=== PATIENT | male | born 1975 | race African-American/Black ===

== ENCOUNTER 2019-05-30 13:03 | Inpatient (IN) | payer SELFPAY ==
[~2019-05-30] VITALS: Ht 182.9 cm; Wt 106.6 kg
[2019-05-30] MEDS ORDERED: MAGNESIUM/ALUMINUM HYDROXIDE/SIMETHICONE 30ML UDC PO ONE (14:15)
[2019-05-30] MEDS ORDERED: ASPIRIN 81MG TABLET PO ONE (14:15)
[2019-05-30] MEDS ORDERED: VISCOUS LIDOCAINE 2% 15 ML UDC PO ONE (14:15)
[2019-05-30 14:31] LABS: BASOPHILS % 0.8 % (0.0-2.0); EOSINOPHILS % 3.7 % (0.0-5.0); HEMATOCRIT. 42.9 % (42.0-52.0); HEMOGLOBIN. 14.7 g/dL (14.0-18.0); LYMPHOCYTES % 34.9 % (20.0-50.0); MEAN CORPUSCULAR HEMOGLOBIN 30.6 pg (28.0-32.0); MEAN CORPUSCULAR VOLUME 89.1 fL (80.0-94.0); MEAN PLATELET VOLUME 8.8 fl (7.4-10.4); MONOCYTES % 12.5 % (2.0-8.0); NEUTROPHILS % 48.1 % (40.0-76.0); PLATELET 218 x1000/uL (130-400); RED BLOOD CELL COUNT 4.82 mill/uL (4.7-6.1); RED CELL DISTRIBUTION WIDTH 13.2 % (11.6-14.6)
[2019-05-30 14:38] LABS: CHLORIDE 109 mEq/L (98-107)
[2019-05-30] MEDS ORDERED: ASPIRIN 81MG EC TABLET PO SCH (16:00)
[2019-05-30] MEDS ORDERED: CLONIDINE 0.1MG TABLET PO PRN (16:15)
[2019-05-30] MEDS ORDERED: ATORVASTATIN CALCIUM 40MG TABLET PO SCH (16:15)
[2019-05-30] MEDS ORDERED: ONDANSETRON HCL 4MG/2ML INJ IV PRN (16:15)
[2019-05-30] MEDS ORDERED: REGADENOSON 0.4 MG/5 ML IV SCH (16:30)
[2019-05-30] MEDS ORDERED: ATORVASTATIN CALCIUM 40MG TABLET PO NR (18:00)
[2019-05-30] MEDS: ACETAMINOPHEN 325MG TABLET PO PRN (18:04)
[2019-05-30 23:41] VITALS: BP 125/66
[2019-05-31] VITALS: BP 125/66
[2019-05-31] MEDS: AMLODIPINE 5MG TABLET PO SCH ×3 (02:16→21:54)
[2019-05-31 04:00] VITALS: BP 122/63
[2019-05-31] MEDS: NITROGLYCERIN OINT 1GM/INCH UDPKT TD SCH ×3 (05:01→21:53)
[2019-05-31 08:00] VITALS: BP 129/54
[2019-05-31 08:45] LABS: BASOPHILS % 0.3 % (0.0-2.0); EOSINOPHILS % 3.1 % (0.0-5.0); HEMATOCRIT. 42.3 % (42.0-52.0); HEMOGLOBIN. 14.6 g/dL (14.0-18.0); MEAN CORPUSCULAR HEMOGLOBIN 30.6 pg (28.0-32.0); MEAN CORPUSCULAR VOLUME 88.8 fL (80.0-94.0); MONOCYTES % 11.5 % (2.0-8.0); NEUTROPHILS % 56.1 % (40.0-76.0); PLATELET 213 x1000/uL (130-400); RED BLOOD CELL COUNT 4.76 mill/uL (4.7-6.1); RED CELL DISTRIBUTION WIDTH 13.1 % (11.6-14.6)
[2019-05-31 08:53] LABS: CHLORIDE 109 mEq/L (98-107)
[2019-05-31 09:00] LABS: LDL CHOLESTEROL 173 mg/dL (5-100)
[2019-05-31 09:01] LABS: HDL CHOLESTEROL 51 mg/dL (40-59)
[2019-05-31] MEDS: ACETAMINOPHEN 325MG TABLET PO PRN (09:41)
[2019-05-31] MEDS ORDERED: REGADENOSON 0.4 MG/5 ML IV ONE (10:29)
[2019-05-31 12:00] VITALS: BP 133/74
[2019-05-31] MEDS: ASPIRIN 81MG EC TABLET PO SCH (13:15)
[2019-05-31] MEDS: HEPARIN 5000 UNITS/ML VIAL SUBCUT SCH ×2 (13:15→21:53)
[2019-05-31 16:00] VITALS: BP 130/65
[2019-05-31 20:00] VITALS: BP 137/87
[2019-05-31] MEDS ORDERED: ATORVASTATIN CALCIUM 40MG TABLET PO SCH (21:00)
[2019-06-01] VITALS: BP 109/56
[2019-06-01 04:00] VITALS: BP 104/59
[2019-06-01] MEDS: NITROGLYCERIN OINT 1GM/INCH UDPKT TD SCH (06:06)
[2019-06-01 08:00] VITALS: BP 124/64
[2019-06-01 08:20] LABS: BASOPHILS % 0.5 % (0.0-2.0); EOSINOPHILS % 3.1 % (0.0-5.0); LYMPHOCYTES % 30.5 % (20.0-50.0); MEAN CORPUSCULAR HEMOGLOBIN 29.6 pg (28.0-32.0); MEAN CORPUSCULAR VOLUME 88.9 fL (80.0-94.0); MEAN PLATELET VOLUME 8.9 fl (7.4-10.4); MONOCYTES % 11.2 % (2.0-8.0); NEUTROPHILS % 54.7 % (40.0-76.0); PLATELET 215 x1000/uL (130-400); RED BLOOD CELL COUNT 4.73 mill/uL (4.7-6.1); RED CELL DISTRIBUTION WIDTH 12.8 % (11.6-14.6)
[2019-06-01 08:26] LABS: CHLORIDE 108 mEq/L (98-107)
[2019-06-01] MEDS: ASPIRIN 81MG EC TABLET PO SCH (09:22)
[2019-06-01] MEDS: AMLODIPINE 5MG TABLET PO SCH (09:22)
[2019-06-01 13:15] VITALS: BP 124/64
== END 2019-06-01 13:52 | disposition home or self-care (01) | DRG 199 ==
LOC: ER 13:03 → 5WST 15:44 → EDBEDREQTM 15:52 → EDBEDREQ 15:52 → ENRESERV 22:24
PROVIDERS: ADMIT Internal Medicine; ATTEND Internal Medicine
DX: I16.1 Hypertensive emergency (principal); I11.9 Hypertensive heart disease without heart failure; E66.09 Other obesity due to excess calories; E78.5 Hyperlipidemia, unspecified; Z68.39 Body mass index [BMI] 39.0-39.9, adult; Z79.82 Long term (current) use of aspirin; Z96.659 Presence of unspecified artificial knee joint; R00.1 Bradycardia, unspecified
CPT/HCPCS: 36415; 71045; 78452; 80048; 80053; 80061; 83036; 83735; 83880; 84484; 85025; 93005; 93306; 99285; A9500; J1644; J2785